=== PATIENT | female | born 1975 | race Native Hawaiian/Other Pacific Islander ===

== ENCOUNTER 2016-12-04 11:37 | Emergency (ER) | payer OTHER ==
[~2016-12-04] VITALS: Ht 157.5 cm; Wt 90.8 kg
[2016-12-04] MEDS ORDERED: NEURONTIN 100M100 MG OR (12:01)
[2016-12-04] MEDS ORDERED: TRAZ100T OR (12:02)
[2016-12-04] MEDS ORDERED: METFORMIN HCL500 M1 PO (12:02)
[2016-12-04] MEDS ORDERED: SIMV10TA PO (12:03)
[2016-12-04] MEDS ORDERED: MONT10TA PO (12:03)
== END 2016-12-04 14:31 | disposition home or self-care (01) ==
LOC: ED 11:37
DX: S80.02XA Contusion of left knee, initial encounter (principal); W10.9XXA Fall (on) (from) unspecified stairs and steps, initial encounter; Y92.098 Other place in other non-institutional residence as the place of occurrence of the external cause
CPT/HCPCS: 99282

== ENCOUNTER 2018-03-14 18:33 | Emergency (ER) | payer OTHER ==
[~2018-03-14] VITALS: Ht 154.9 cm; Wt 73.0 kg
[~2018-03-14 18:33] MED LIST: METFORMIN HCL500 M1 PO; MONT10TA PO; NEURONTIN 100M100 MG OR; SIMV10TA PO; TRAZ100T OR
[2018-03-14 19:21] LABS: PLATELET COUNT 186 K/uL (152-353)
[2018-03-14 19:27] LABS: POTASSIUM 3.8 mmol/L (3.6-5.2)
[2018-03-14 20:15] VITALS: BP 125/75; TEMP 99.1
== END 2018-03-14 20:19 | disposition home or self-care (01) ==
LOC: ED 18:33
DX: R05 Cough (principal); J18.9 Pneumonia, unspecified organism
CPT/HCPCS: 36415; 80053; 81000; 85027; 96372; 99283; J0696

== ENCOUNTER 2018-07-04 20:05 | Emergency (ER) | payer OTHER ==
[~2018-07-04] VITALS: Ht 157.5 cm; Wt 74.4 kg
[2018-07-04 21:00] LABS: PLATELET COUNT 255 K/uL (152-353)
[2018-07-04 22:01] VITALS: BP 117/69; TEMP 97.9
== END 2018-07-04 22:03 | disposition home or self-care (01) ==
LOC: ED 20:05
DX: M54.5 Low back pain (principal); X50.9XXA Other and unspecified overexertion or strenuous movements or postures, initial encounter
CPT/HCPCS: 80053; 80307; 81000; 85027; 96372; 99283; J1885

== ENCOUNTER 2018-10-01 13:58 | Emergency (ER) | payer OTHER ==
[~2018-10-01] VITALS: Ht 157.5 cm; Wt 82.6 kg
[2018-10-01 14:07] VITALS: TEMP 98.3
[2018-10-01 15:00] VITALS: BP 126/80
== END 2018-10-01 15:00 | disposition home or self-care (01) ==
LOC: ED 13:58
DX: J03.90 Acute tonsillitis, unspecified (principal); E11.9 Type 2 diabetes mellitus without complications; J44.9 Chronic obstructive pulmonary disease, unspecified
CPT/HCPCS: 87651; 99282

== ENCOUNTER 2019-06-28 20:21 | Emergency (ER) | payer OTHER ==
[~2019-06-28] VITALS: Ht 157.5 cm; Wt 82.6 kg
[2019-06-28 22:25] VITALS: BP 125/77; TEMP 98.2
== END 2019-06-28 22:25 | disposition home or self-care (01) ==
LOC: ED 20:21
DX: B86 Scabies (principal); Z16.31 Resistance to antiparasitic drug(s)
CPT/HCPCS: 99282

== ENCOUNTER 2020-01-26 15:20 | Emergency (ER) | payer OTHER ==
[~2020-01-26] VITALS: Ht 157.5 cm; Wt 84.8 kg
[2020-01-26 15:45] VITALS: TEMP 98.9
[2020-01-26 16:32] LABS: PLATELET COUNT 233 K/uL (152-353)
[2020-01-26 16:57] LABS: POTASSIUM 3.9 mmol/L (3.6-5.2)
[2020-01-26 18:38] VITALS: BP 139/70
== END 2020-01-26 18:38 | disposition home or self-care (01) ==
LOC: ED 15:20
PROVIDERS: Family Medicine
DX: E86.0 Dehydration (principal); R42 Dizziness and giddiness; K21.9 Gastro-esophageal reflux disease without esophagitis
CPT/HCPCS: 36415; 80053; 81000; 82150; 82550; 82553; 83605; 83690; 83880; 84484; 85027; 93005; 96360; 96375; 99284; J2405

== ENCOUNTER 2020-04-22 22:43 | Emergency (ER) | payer OTHER ==
[~2020-04-22] VITALS: Ht 157.5 cm; Wt 84.8 kg
[2020-04-23 01:52] VITALS: BP 128/78; TEMP 97.8
== END 2020-04-23 01:52 | disposition home or self-care (01) ==
LOC: ED 22:43
DX: L50.8 Other urticaria (principal)
CPT/HCPCS: 96372; 99283; J1200; J2930

== ENCOUNTER 2020-10-01 12:17 | Emergency (ER) | payer OTHER ==
[~2020-10-01] VITALS: Ht 157.5 cm; Wt 82.1 kg
[2020-10-01 12:36] VITALS: TEMP 98.1
[2020-10-01 13:46] LABS: PLATELET COUNT 230 K/uL (152-353)
[2020-10-01 13:55] LABS: POTASSIUM 4.1 mmol/L (3.6-5.2)
[2020-10-01 15:45] VITALS: BP 129/66
== END 2020-10-01 15:45 | disposition home or self-care (01) ==
LOC: ED 12:17
PROVIDERS: Family Medicine
DX: J06.9 Acute upper respiratory infection, unspecified (principal); R05 Cough; Z20.828 Contact with and (suspected) exposure to other viral communicable diseases; Z77.22 Contact with and (suspected) exposure to environmental tobacco smoke (acute) (chronic)
CPT/HCPCS: 80053; 85027; 87502; 87635; 87651; 99283; U0003

== ENCOUNTER 2020-12-30 11:17 | Outpatient (CLI) | payer OTHER | END 2020-12-30 20:01 | disposition home or self-care (01) | LOC: RAD 11:17 | PROVIDERS: ATTEND Orthopaedic Surgery | DX: M25.512 Pain in left shoulder (principal) ==

== ENCOUNTER 2021-02-21 13:20 | Emergency (ER) | payer OTHER ==
[~2021-02-21] VITALS: Ht 157.5 cm; Wt 83.9 kg
[2021-02-21 13:35] VITALS: BP 144/79; TEMP 98.8
[2021-02-21 14:35] LABS: PLATELET COUNT 214 K/uL (152-353)
== END 2021-02-21 15:12 | disposition home or self-care (01) ==
LOC: ED 13:20
PROVIDERS: Hospitalist
DX: J06.9 Acute upper respiratory infection, unspecified (principal); R19.7 Diarrhea, unspecified; R11.2 Nausea with vomiting, unspecified; Z20.822 Contact with and (suspected) exposure to COVID-19
CPT/HCPCS: 80048; 85027; 87635; 87651; 99283; U0003

== ENCOUNTER 2021-08-04 19:27 | Emergency (ER) | payer OTHER ==
[~2021-08-04] VITALS: Ht 157.5 cm; Wt 87.5 kg
[2021-08-04 20:32] LABS: PLATELET COUNT 179 K/uL (152-353)
[2021-08-04 20:46] LABS: POTASSIUM 3.7 mmol/L (3.6-5.2)
[2021-08-04 21:10] VITALS: BP 105/64; TEMP 98.3
== END 2021-08-04 21:10 | disposition home or self-care (01) ==
LOC: ED 19:27
PROVIDERS: Emergency Medicine
DX: B34.9 Viral infection, unspecified (principal); U07.1 COVID-19
CPT/HCPCS: 36415; 80053; 84484; 85027; 87635; 93005; 96372; 99283; J2405; U0003

== ENCOUNTER 2021-10-09 00:59 | Inpatient (IN) | payer OTHER ==
[~2021-10-09] VITALS: Ht 157.5 cm; Wt 93.6 kg
[2021-10-09] VITALS (9 sets, daily range): BP systolic 108–135; BP diastolic 56–75; TEMP 97.6–101.3; Ht 157.5 cm; Wt 93.6 kg
[2021-10-09 01:34] LABS: POTASSIUM 3.6 mmol/L (3.6-5.2)
[2021-10-09 01:40] LABS: PLATELET COUNT 284 K/uL (152-353)
[2021-10-09 08:23] LABS: PLATELET COUNT 262 K/uL (152-353)
[2021-10-09] MEDS ORDERED: CITALOPRAM20 MG PO (14:03)
[2021-10-09] MEDS ORDERED: FEROSUL325 MG PO (14:05)
[2021-10-09] MEDS ORDERED: GRALISE600 MG PO (14:05)
[2021-10-09] MEDS ORDERED: LAMOTRIGINE100 MG PO (14:06)
[2021-10-09] MEDS ORDERED: ENDOCET1 TAB PO (14:07)
[2021-10-09] MEDS ORDERED: SIMV40TA57 PO (14:08)
[2021-10-09] MEDS ORDERED: SYMBICORT1 AE1 INH (14:08)
[2021-10-09] MEDS ORDERED: INSU100I2 SC (14:09)
[2021-10-09] MEDS ORDERED: METFORMIN PO (14:10)
[2021-10-09] MEDS ORDERED: OMEPRAZOLE DR20 MG PO (14:11)
[2021-10-09] MEDS ORDERED: REMERON SOLTAB15 MG PO (14:11)
[2021-10-09] MEDS ORDERED: TIZANIDINE HYDRO4 M1 PO (14:12)
[2021-10-09] MEDS ORDERED: DOXYCYCL HYC100 MG PO (14:14)
[2021-10-10] VITALS (7 sets, daily range): BP systolic 95–123; BP diastolic 40–68; TEMP 98–102.7
[2021-10-10 09:08] LABS: PLATELET COUNT 284 K/uL (152-353)
[2021-10-10 09:19] LABS: POTASSIUM 3.9 mmol/L (3.6-5.2)
[2021-10-11] VITALS: BP 120/68; TEMP 99.3
[2021-10-11 04:00] VITALS: BP 91/41; TEMP 98.3
[2021-10-11 08:00] VITALS: BP 99/56; TEMP 98
[2021-10-11 12:00] VITALS: BP 117/77; TEMP 97.9
[2021-10-11] MEDS ORDERED: PRED10TA27 PO (14:49)
== END 2021-10-11 16:13 | disposition home or self-care (01) | DRG 607 ==
LOC: ED 00:59 → MED/SURG 02:00
PROVIDERS: ADMIT Emergency Medicine; ATTEND Internal Medicine
DX: L27.1 Localized skin eruption due to drugs and medicaments taken internally (principal); T36.4X5A Adverse effect of tetracyclines, initial encounter; Y92.89 Other specified places as the place of occurrence of the external cause; J44.9 Chronic obstructive pulmonary disease, unspecified; K21.9 Gastro-esophageal reflux disease without esophagitis; E78.49 Other hyperlipidemia; E11.42 Type 2 diabetes mellitus with diabetic polyneuropathy; Z72.0 Tobacco use; I10 Essential (primary) hypertension
CPT/HCPCS: 36415; 80053; 80074; 82948; 85027; 85610; 87040; 87635; 87651; 96360; 96361; 96372; 96374; 96375; 99284; J1200; J1650; J1815; J2270; J2405; J2930; U0003

== ENCOUNTER 2022-03-11 23:15 | Emergency (ER) | payer OTHER ==
[~2022-03-11] VITALS: Ht 157.5 cm; Wt 96.6 kg
[~2022-03-11 23:15] MED LIST changes: +CITALOPRAM20 MG PO; +DOXYCYCL HYC100 MG PO; +ENDOCET1 TAB PO; +FEROSUL325 MG PO; +GRALISE600 MG PO; +INSU100I2 SC; +LAMOTRIGINE100 MG PO; +METFORMIN PO; +OMEPRAZOLE DR20 MG PO; +PRED10TA27 PO; +REMERON SOLTAB15 MG PO; +SIMV40TA57 PO; +SYMBICORT1 AE1 INH; +TIZANIDINE HYDRO4 M1 PO
[2022-03-12 00:55] LABS: POTASSIUM 3.9 mmol/L (3.6-5.2)
[2022-03-12 00:58] LABS: PLATELET COUNT 269 K/uL (152-353)
[2022-03-12 02:30] VITALS: BP 143/68; TEMP 98.4
== END 2022-03-12 02:30 | disposition home or self-care (01) ==
LOC: ED 23:15
PROVIDERS: Emergency Medicine Emergency Medical Services
DX: R10.84 Generalized abdominal pain (principal)
CPT/HCPCS: 36415; 80053; 81000; 82150; 82272; 83690; 85027; 96360; 96374; 96375; 99284; J2270; J2405

== ENCOUNTER 2022-08-11 10:18 | Emergency (ER) | payer OTHER ==
[~2022-08-11] VITALS: Ht 157.5 cm; Wt 96.6 kg
[2022-08-11 10:22] VITALS: BP 133/73; TEMP 99.2
[2022-08-11 10:40] LABS: PLATELET COUNT 218 K/uL (152-353)
[2022-08-11 10:53] LABS: POTASSIUM 4.6 mmol/L (3.6-5.2)
== END 2022-08-11 12:29 | disposition home or self-care (01) ==
LOC: ED 10:18
PROVIDERS: Emergency Medicine
DX: J44.1 Chronic obstructive pulmonary disease with (acute) exacerbation (principal)
CPT/HCPCS: 36415; 80053; 83880; 84484; 85027; 85610; 85730; 87502; 93005; 94664; 96374; 99284; J2930